=== PATIENT | female | born 1975 | race American Indian/Alaskan Native ===

== ENCOUNTER 2017-12-25 18:44 | Inpatient (IN) | payer SELFPAY ==
[2017-12-25] MEDS ORDERED: Sodium Chloride 0.9% 1,000 ML IV ONE (19:23)
--- NOTE | 2017-12-25 19:28 | C.PDOC ---
History Of Present Illness 43 year old female presents to the ER with a complaint of crampy epigastric pain radiating to the whole abdomen for the past 4 days. Patient reports she has been having lots of flatulence and had scant liquid stool today. Patient does not believe she is , she has a Hx of bilateral tubal ligation in 2010. Denies constipation. Time Seen by Provider: 12/25/17 19:18 Chief Complaint (Nursing): Abdominal Pain History Per: Patient History/Exam Limitations: no limitations Onset/Duration Of Symptoms: Days Current Symptoms Are (Timing): Still Present Location Of Pain/Discomfort: Epigastric Radiation Of Pain To:: Other (Whole abdomen) Quality Of Discomfort: Cramping Associated Symptoms: denies: Fever, Chills, Constipation Exacerbating Factors: None Alleviating Factors: None Recent travel outside of the [place]: No Abnormal Vaginal Bleeding: No Past Medical History Reviewed: Historical Data, Nursing Documentation, Vital Signs Vital Signs: Last Vital Signs Temp 98.9 F 12/25/17 22:57 Pulse 83 12/25/17 22:57 Resp 16 12/25/17 22:57 BP 127/78 12/25/17 22:57 Pulse Ox 100 12/25/17 22:57 - Medical History PMH: Anemia Family History: States: No Known Family Hx - Social History Hx Alcohol Use: No Hx Substance Use: No - Immunization History Hx Tetanus Toxoid Vaccination: No Hx Influenza Vaccination: No Hx Pneumococcal Vaccination: No Review Of Systems Constitutional: Negative for: Fever, Chills Cardiovascular: Negative for: Chest Pain, Palpitations Respiratory: Negative for: Cough, Shortness of Breath Gastrointestinal: Positive for: Abdominal Pain, Other (Scant liquid stools) Physical Exam - Physical Exam Appears: Non-toxic Skin: Normal Color, Warm, Dry Head: Atraumatic, Normacephalic Eye(s): bilateral: Normal Inspection Oral Mucosa: Moist Chest: Symmetrical, No Tenderness Cardiovascular: Rhythm Regular Respiratory: No Rales, No Rhonchi, No Wheezing Gastrointestinal/Abdominal: Soft, No Tenderness, Other (Obese, dull to percussion on right side. Negative Mcburney's/Hall's) Neurological/Psych: Oriented x3, Normal Speech ED Course And Treatment - Laboratory Results Result Diagrams: 12/25/17 19:44 12/25/17 19:44 Lab Interpretation: Abnormal (lipase 11,000 H) Urine POC: Positive (but Quant HCG only 7.6 (below qualitative threshold)) O2 Sat by Pulse Oximetry: 98 (Room air) Pulse Ox Interpretation: Normal Progress Note: Blood work, urinalysis, and obstructive series ordered. IV fluids and toradol administered. Reevaluation Time: 00:43 Reassessment Condition: Improved - Physician Consult Information Outcome Of Conversation: 0045: d/w Dr. Antunez- Hospitalist covering Self-Pay pt' s, ok to admit. Medical Decision Making Medical Decision Making: pancreatitis, lipase 11,000 and pancreatic mass (body and tail) of ? etiology no sig weight loss nor abd MARISOL adm for further eval and tx NPO Disposition Doctor Will See Patient In The: Hospital Counseled Patient/Family Regarding: Studies Performed, Diagnosis - Disposition Disposition: HOSPITALIZED Disposition Time: 00:44 Condition: GOOD Forms: [employer] (Gabonese) - Clinical Impression Clinical Impression: Cystic mass of pancreas, Pancreatitis - Scribe Statement The provider has reviewed the documentation as recorded by the Scribgarcía Rizvi All medical record entries made by the Scribe were at my direction and personally dictated by me. I have reviewed the chart and agree that the record accurately reflects my personal performance of the history, physical exam, medical decision making, and the department course for this patient. I have also personally directed, reviewed, and agree with the discharge instructions and disposition.
[2017-12-25 19:50] LABS: BASO % 0.3 % (0.0-2.0); HEMOGLOBIN 9.2 g/dL (11.0-16.0); LYMPH # 0.8 K/uL (1.0-4.3); LYMPH % 7.5 % (20.0-40.0); MEAN CELL VOLUME 65.5 fL (81.0-99.0); MEAN CORPUSCULAR HEMOGLOBIN 20.6 pg (27.0-31.0); MEAN CORPUSCULAR HGB CONC 31.5 g/dL (33.0-37.0); MEAN PLATELET VOLUME 7.5 fL (7.2-11.7); MONO # 0.6 K/uL (0.0-0.8); MONO % 5.3 % (0.0-10.0); NEUT # 9.2 K/uL (1.8-7.0); NEUT % 86.9 % (50.0-75.0); PLATELET COUNT 316 K/uL (130-400); RBC 4.44 Mil/uL (3.80-5.20); RED CELL DISTRIBUTION WIDTH 16.3 % (11.5-14.5); WHITE BLOOD COUNT 10.6 K/uL (4.8-10.8)
[2017-12-25 19:54] LABS: HCG,QUALITATIVE URINE POSITIVE (NEGATIVE)
[2017-12-25 19:58] LABS: SQUAMOUS EPITHIAL 1 /hpf (0-5); URINE BACTERIA OCC (<OCC); URINE BILIRUBIN NEGATIVE (NEGATIVE); URINE BLOOD NEGATIVE (NEGATIVE); URINE CLARITY Clear (Clear); URINE COLOR Yellow (YELLOW); URINE GLUCOSE (UA) NORMAL (Normal); URINE LEUKOCYTE ESTERASE NEG Leu/uL (Negative); URINE PROTEIN 2+ mg/dL (NEGATIVE); URINE UROBILINOGEN NORMAL mg/dL (0.2-1.0)
[2017-12-25 20:04] LABS: ALB/GLOB RATIO 1.3 (1.0-2.1); ALBUMIN 4.5 g/dL (3.5-5.0); ALT/SGPT 18 U/L (9-52); AST/SGOT 18 U/L (14-36); BLOOD UREA NITROGEN 12 mg/dL (7-17); CALCIUM 9.8 mg/dl (8.6-10.4); GFR AFRICAN-AMERICAN > 60; GFR NON-AFRICAN AMERICAN > 60
[2017-12-25 20:27] LABS: LIPASE 10947 U/L (23-300)
[2017-12-25 20:28] LABS: ANISOCYTOSIS SLIGHT; LYMPHOCYTE 9 % (20-40); MONOCYTE 4 % (0-10); NEUTROPHIL 87 % (50-75); PLATELET ESTIMATE NORMAL (NORMAL); TOTAL CELLS COUNTED 100
[2017-12-25 20:29] LABS: HYPOCHROMIC MODERATE; MICROCYTOSIS SLIGHT; POLYCHROMIC SLIGHT
[2017-12-25] MEDS ORDERED: Iodixanol 320 MG/ML 100 ML BOTTLE IV ONE (23:19)
--- NOTE | 2017-12-26 01:43 | CP.PCM.HP ---
<Susana Morales - Last Filed: 12/26/17 03:33> History of Present Illness - History of Present Illness History of Present Illness: 42 yo F w/ PMHx of iron deficiency anemia presented to the ED w/ 3 days of worsening abdominal pain. Pt states the pain is constant, located in LUQ and radiates laterally to the back on the left. Patient admits to fatigue, nausea and loose stools, now progressed to diarrhea. Pt denies chest pain, SOB, vomiting. Pt is from the [facility] here visiting and claims she has never had this pain before. Present on Admission - Present on Admission Any Indicators Present on Admission: No Review of Systems - Constitutional Constitutional: Anorexia, Chills, Fatigue - Cardiovascular Cardiovascular: absent: Chest Pain, Edema, Palpitations - Respiratory Respiratory: absent: Cough, Dyspnea - Gastrointestinal Gastrointestinal: Diarrhea, Loose Stools, Nausea. absent: Vomiting - Genitourinary Genitourinary: absent: Dysuria - Integumentary Integumentary: absent: Jaundice Past Patient History - Past Social History Smoking Status: Never Smoked - HEMATOLOGICAL/ONCOLOGICAL Hx Anemia: Yes - PSYCHIATRIC Hx Substance Use: No Meds Allergies/Adverse Reactions: Allergies Allergy/AdvReac Type Severity Reaction Status Date / Time No Known Allergies Allergy Verified 12/25/17 18:54 Physical Exam - Constitutional Appears: No Acute Distress - Head Exam Head Exam: ATRAUMATIC, NORMAL INSPECTION, NORMOCEPHALIC - Eye Exam Eye Exam: EOMI, Normal appearance. absent: Scleral icterus - ENT Exam ENT Exam: Mucous Membranes Moist, Normal Exam - Respiratory Exam Respiratory Exam: Clear to Auscultation Bilateral, NORMAL BREATHING PATTERN - Cardiovascular Exam Cardiovascular Exam: REGULAR RHYTHM, +S1, +S2 - GI/Abdominal Exam GI & Abdominal Exam: Normal Bowel Sounds, Soft - Neurological Exam Neurological exam: Alert, Oriented x3 - Psychiatric Exam Psychiatric exam: Normal Affect - Skin Skin Exam: Diaphoretic Results - Vital Signs Recent Vital Signs: Last Vital Signs Temp 98.9 F 12/25/17 22:57 Pulse 96 H 12/26/17 01:17 Resp 16 12/26/17 01:17 BP 114/72 12/26/17 01:17 Pulse Ox 99 12/26/17 01:17 - Labs Result Diagrams: 12/25/17 19:44 12/25/17 19:44 Labs: Laboratory Results - last 24 hr 12/25/17 12/25/17 12/25/17 19:41 19:44 19:44 WBC 10.6 RBC 4.44 Hgb 9.2 L Hct 29.1 L MCV 65.5 L MCH 20.6 L MCHC 31.5 L RDW 16.3 H Plt Count 316 MPV 7.5 Neut % (Auto) 86.9 H Lymph % (Auto) 7.5 L Whiteside % (Auto) 5.3 Eos % (Auto) 0.0 Baso % (Auto) 0.3 Neut # (Auto) 9.2 H Lymph # (Auto) 0.8 L Whites[place] # (Auto) 0.6 Eos # (Auto) 0.0 Baso # (Auto) 0.0 Neutrophils % (Manual) 87 H Lymphocytes % (Manual) 9 L Monocytes % (Manual) 4 Platelet Estimate Normal Polychromasia Slight Hypochromasia (manual) Moderate Anisocytosis (manual) Slight Microcytosis (manual) Slight Sodium 139 Potassium 4.1 Chloride 99 Carbon Dioxide 25 Anion Gap 18 BUN 12 Creatinine 0.6 L Est GFR ( Amer) > 60 Est GFR (Non-Af Amer) > 60 Random Glucose 136 H Calcium 9.8 Total Bilirubin 1.0 AST 18 ALT 18 Alkaline Phosphatase 84 Total Protein 8.1 Albumin 4.5 Globulin 3.6 Albumin/Globulin Ratio 1.3 Lipase 65715 H Beta HCG, Quant Urine Color Yellow Urine Clarity Clear Urine pH 5.0 Ur Specific [place] 1.025 Urine Protein 2+ H Urine Glucose (UA) Normal Urine Ketones 2+ H Urine Blood Negative Urine Nitrate Negative Urine Bilirubin Negative Urine Urobilinogen Normal Ur Leukocyte Esterase Neg Urine WBC (Auto) 2 Urine RBC (Auto) < 1 Ur Squamous Epith Cells 1 Urine Bacteria Occ H Urine HCG, Qual Positive Blood Type Antibody Screen 12/25/17 12/25/17 20:13 20:20 WBC RBC Hgb Hct MCV MCH MCHC RDW Plt Count MPV Neut % (Auto) Lymph % (Auto) Whiteside % (Auto) Eos % (Auto) Baso % (Auto) Neut # (Auto) Lymph # (Auto) Whiteside # (Auto) Eos # (Auto) Baso # (Auto) Neutrophils % (Manual) Lymphocytes % (Manual) Monocytes % (Manual) Platelet Estimate Polychromasia Hypochromasia (manual) Anisocytosis (manual) Microcytosis (manual) Sodium Potassium Chloride Carbon Dioxide Anion Gap BUN Creatinine Est GFR ( Amer) Est GFR (Non-Af Amer) Random Glucose Calcium Total Bilirubin AST ALT Alkaline Phosphatase Total Protein Albumin Globulin Albumin/Globulin Ratio Lipase Beta HCG, Quant 7.66 Urine Color Urine Clarity Urine pH Ur Specific [place] Urine Protein Urine Glucose (UA) Urine Ketones Urine Blood Urine Nitrate Urine Bilirubin Urine Urobilinogen Ur Leukocyte Esterase Urine WBC (Auto) Urine RBC (Auto) Ur Squamous Epith Cells Urine Bacteria Urine HCG, Qual Blood Type A POSITIVE Antibody Screen Negative Assessment & Plan - Assessment and Plan (Free Text) Assessment: 42 yo F w/ PMHx of iron deficiency anemia admitted w/ acute pancreatitis; pancreatic mass found on CT. 1. Acute Pancreatitis -lipase 10,947 -NS @200 -NPO -zofran 4mg q6 -morphine 1mg q4 PRN -consider GI consult 2. Pancreatic mass -HCG + -f/u CT report -f/u CEA, Ca19-9 -consider heme/onc consult 3. Iron deficiency anemia-chronic -hgb stable @ 9.2 -continue to monitor Dispo: Pt admitted inpatient at this time, reassess as pancreatitis subsides - Date & Time Date: 12/26/17 Time: 03:34 Decision To Admit - Pt Status Changed To: Hospital Disposition Of: Inpatient - Admit Certification Admit to Inpatient:: After my assessment, the patient will require hospitalization for at least two midnights. This is because of the severity of symptoms shown, intensity of services needed, and/or the medical risk in this patient being treated as an outpatient. - InPatient: Physician Admission Certification:: Pt in need of regular inpatient admission - . Bed Request Type: Regular <Davide Antunez - Last Filed: 12/26/17 06:36> Results - Vital Signs Recent Vital Signs: Last Vital Signs Temp 98.8 F 12/26/17 02:15 Pulse 75 12/26/17 02:15 Resp 20 12/26/17 02:15 BP 121/76 12/26/17 02:15 Pulse Ox 98 12/26/17 02:15 - Labs Result Diagrams: 12/25/17 19:44 12/25/17 19:44 Labs: Laboratory Results - last 24 hr 12/25/17 12/25/17 12/25/17 19:41 19:44 19:44 WBC 10.6 RBC 4.44 Hgb 9.2 L Hct 29.1 L MCV 65.5 L MCH 20.6 L MCHC 31.5 L RDW 16.3 H Plt Count 316 MPV 7.5 Neut % (Auto) 86.9 H Lymph % (Auto) 7.5 L Whiteside % (Auto) 5.3 Eos % (Auto) 0.0 Baso % (Auto) 0.3 Neut # (Auto) 9.2 H Lymph # (Auto) 0.8 L Whites[place] # (Auto) 0.6 Eos # (Auto) 0.0 Baso # (Auto) 0.0 Neutrophils % (Manual) 87 H Lymphocytes % (Manual) 9 L Monocytes % (Manual) 4 Platelet Estimate Normal Polychromasia Slight Hypochromasia (manual) Moderate Anisocytosis (manual) Slight Microcytosis (manual) Slight Sodium 139 Potassium 4.1 Chloride 99 Carbon Dioxide 25 Anion Gap 18 BUN 12 Creatinine 0.6 L Est GFR ( Amer) > 60 Est GFR (Non-Af Amer) > 60 Random Glucose 136 H Calcium 9.8 Total Bilirubin 1.0 AST 18 ALT 18 Alkaline Phosphatase 84 Total Protein 8.1 Albumin 4.5 Globulin 3.6 Albumin/Globulin Ratio 1.3 Lipase 31240 H Carcinoembryonic Ag CA 19-9 Antigen Beta HCG, Quant Urine Color Yellow Urine Clarity Clear Urine pH 5.0 Ur Specific [place] 1.025 Urine Protein 2+ H Urine Glucose (UA) Normal Urine Ketones 2+ H Urine Blood Negative Urine Nitrate Negative Urine Bilirubin Negative Urine Urobilinogen Normal Ur Leukocyte Esterase Neg Urine WBC (Auto) 2 Urine RBC (Auto) < 1 Ur Squamous Epith Cells 1 Urine Bacteria Occ H Urine HCG, Qual Positive Blood Type Antibody Screen 12/25/17 12/25/17 12/26/17 20:13 20:20 03:26 WBC RBC Hgb Hct MCV MCH MCHC RDW Plt Count MPV Neut % (Auto) Lymph % (Auto) Whiteside % (Auto) Eos % (Auto) Baso % (Auto) Neut # (Auto) Lymph # (Auto) Whiteside # (Auto) Eos # (Auto) Baso # (Auto) Neutrophils % (Manual) Lymphocytes % (Manual) Monocytes % (Manual) Platelet Estimate Polychromasia Hypochromasia (manual) Anisocytosis (manual) Microcytosis (manual) Sodium Potassium Chloride Carbon Dioxide Anion Gap BUN Creatinine Est GFR ( Amer) Est GFR (Non-Af Amer) Random Glucose Calcium Total Bilirubin AST ALT Alkaline Phosphatase Total Protein Albumin Globulin Albumin/Globulin Ratio Lipase Carcinoembryonic Ag CA 19-9 Antigen > 1000 H Beta HCG, Quant 7.66 Urine Color Urine Clarity Urine pH Ur Specific [place] Urine Protein Urine Glucose (UA) Urine Ketones Urine Blood Urine Nitrate Urine Bilirubin Urine Urobilinogen Ur Leukocyte Esterase Urine WBC (Auto) Urine RBC (Auto) Ur Squamous Epith Cells Urine Bacteria Urine HCG, Qual Blood Type A POSITIVE Antibody Screen Negative 12/26/17 03:26 WBC RBC Hgb Hct MCV MCH MCHC RDW Plt Count MPV Neut % (Auto) Lymph % (Auto) Whiteside % (Auto) Eos % (Auto) Baso % (Auto) Neut # (Auto) Lymph # (Auto) Whiteside # (Auto) Eos # (Auto) Baso # (Auto) Neutrophils % (Manual) Lymphocytes % (Manual) Monocytes % (Manual) Platelet Estimate Polychromasia Hypochromasia (manual) Anisocytosis (manual) Microcytosis (manual) Sodium Potassium Chloride Carbon Dioxide Anion Gap BUN Creatinine Est GFR ( Amer) Est GFR (Non-Af Amer) Random Glucose Calcium Total Bilirubin AST ALT Alkaline Phosphatase Total Protein Albumin Globulin Albumin/Globulin Ratio Lipase Carcinoembryonic Ag 65.6 H CA 19-9 Antigen Beta HCG, Quant Urine Color Urine Clarity Urine pH Ur Specific [place] Urine Protein Urine Glucose (UA) Urine Ketones Urine Blood Urine Nitrate Urine Bilirubin Urine Urobilinogen Ur Leukocyte Esterase Urine WBC (Auto) Urine RBC (Auto) Ur Squamous Epith Cells Urine Bacteria Urine HCG, Qual Blood Type Antibody Screen Assessment & Plan - Date & Time Date: 12/26/17 (I have seen and examined the patient. I agree with the findings and plan of care as documented by Dr. Castellon. Patient with acute pancreatitis. IVF and NPO. Symptomatic treatment. Also with pancreatic mass. Consider heme/onc consult. Monitor for acute changes.) Time: 06:35 Attending/Attestation - Attestation I have personally seen and examined this patient.: Yes I have fully participated in the care of the patient.: Yes I have reviewed all pertinent clinical information: Yes
[2017-12-26] MEDS: Sodium Chloride 0.9% 1,000 ML IV SCH ×4 (02:19→17:45)
[2017-12-26 02:34] VITALS: RESP 20; O2SAT 98
[2017-12-26 12:09] LABS: BASO % 0.2 % (0.0-2.0); EOS % 0.1 % (0.0-4.0); HEMOGLOBIN 7.8 g/dL (11.0-16.0); LYMPH # 0.8 K/uL (1.0-4.3); LYMPH % 9.2 % (20.0-40.0); MEAN CORPUSCULAR HEMOGLOBIN 21.2 pg (27.0-31.0); MEAN CORPUSCULAR HGB CONC 31.7 g/dL (33.0-37.0); MEAN PLATELET VOLUME 7.8 fL (7.2-11.7); MONO # 0.5 K/uL (0.0-0.8); MONO % 6.4 % (0.0-10.0); NEUT # 6.8 K/uL (1.8-7.0); NEUT % 84.1 % (50.0-75.0); PLATELET COUNT 271 K/uL (130-400); RED CELL DISTRIBUTION WIDTH 16.4 % (11.5-14.5); WHITE BLOOD COUNT 8.1 K/uL (4.8-10.8)
[2017-12-26 12:11] LABS: MEAN CELL VOLUME 66.8 fL (81.0-99.0)
--- NOTE | 2017-12-26 12:11 | CP.PCM.PN ---
Subjective - Date & Time of Evaluation Date of Evaluation: 12/26/17 Time of Evaluation: 08:00 - Subjective Subjective: Medicine Progress Note for Dr. Pham Patient examined at bedside. She states that her abdominal pain is improved compared to yesterday. States that her abdomen was diffusely painful on admission. However today the pain is localized to her epigastric region and right upper quadrant. Has no other complaints at this time. Denies fevers, chills, chest pain, shortness of breath, nausea, vomiting, changes in bowel movements, dysuria. Objective - Vital Signs/Intake and Output Vital Signs (last 24 hours): Temp Pulse Resp BP Pulse Ox 99.2 F 88 20 138/85 98 12/26/17 08:01 12/26/17 08:01 12/26/17 08:01 12/26/17 08:01 12/26/17 08:01 Intake and Output: 12/26/17 12/26/17 06:59 18:59 Intake Total 1999 Balance 1999 - Medications Medications: Current Medications Sodium Chloride (Sodium Chloride 0.9%) 1,000 mls @ 200 mls/hr IV .Q5H [facility] Last Admin: 12/26/17 06:23 Dose: 200 mls/hr Ondansetron HCl (Zofran Inj) 4 mg IVP Q6 [facility] Last Admin: 12/26/17 05:30 Dose: 4 mg Pantoprazole Sodium (Protonix Inj) 40 mg IVP DAILY [facility] Last Admin: 12/26/17 09:32 Dose: 40 mg - Labs Labs: 12/25/17 19:44 12/25/17 19:44 - Constitutional Appears: Non-toxic, No Acute Distress - Head Exam Head Exam: ATRAUMATIC, NORMOCEPHALIC - Eye Exam Eye Exam: EOMI, Normal appearance - ENT Exam ENT Exam: Mucous Membranes Moist, Normal Exam - Neck Exam Neck Exam: Normal Inspection - Respiratory Exam Respiratory Exam: Clear to Ausculation Bilateral, NORMAL BREATHING PATTERN - Cardiovascular Exam Cardiovascular Exam: REGULAR RHYTHM, +S1, +S2 - GI/Abdominal Exam GI & Abdominal Exam: Guarding, Soft, Tenderness (in epigastric region and right upper quadrant ), Hypoactive Bowel Sounds - Extremities Exam Extremities Exam: Full ROM, Normal Capillary Refill, Normal Inspection - Back Exam Back Exam: NORMAL INSPECTION - Neurological Exam Neurological Exam: Alert, Awake, CN II-XII Intact, Oriented x3 - Psychiatric Exam Psychiatric exam: Normal Affect, Normal Mood - Skin Skin Exam: Dry, Normal Color, Warm Assessment and Plan - Assessment and Plan (Free Text) Assessment: Patient is a 42 yo female with past medical history iron deficiency anemia admitted for acute pancreatitis. Pancreatic mass found on CT. Plan: Acute pancreatitis - CT abdomen/pelvis shows 9.3x9.3x10.3 complex cystic mass in the body and tail of the pancreas. Pancreatitis or complex cystic pancreatic tumor. 8.3x4.6x4 cm loculated fluid adjacent to the right side of the esophagus between the aorta and IVC and within the fissure for the ligamentum venosum. Could represent pseudocyst. Tiny bilateral pleural effusions. Small abdominal, pelvic and retroperitoneal fluid that measures greater than simple fluid. May be due to hemorrhage or proteinaceous debris. - Lipase 10,947 - Lipid panel unremarkable - NS @ 200 ccs/hr - NPO - Zofran 4mg q6 - Morphine 1mg q4 PRN - GI consulted. Recs appreciated. Pancreatic mass - HCG+. Transvaginal US shows enlarged heterogeneous uterus. No . - CA 19-9 >5000 - CEA 65.6 - Followup CA-125 - Consider heme/onc consult Iron deficiency anemia-chronic - Hgb 7.8 likely due to hemodilution - Continue to monitor PPX - SCDs - Protonix 40 mg IVP daily Dispo: Pending resolution of pancreatitis Teetee Shelley PGY-1
[2017-12-26 12:22] LABS: HDL CHOLESTEROL 46 mg/dL (30-70)
[2017-12-26 12:28] LABS: ALB/GLOB RATIO 1.2 (1.0-2.1); ALBUMIN 3.9 g/dL (3.5-5.0); ALT/SGPT 17 U/L (9-52); AST/SGOT 18 U/L (14-36); BLOOD UREA NITROGEN 9 mg/dL (7-17); CALCIUM 8.7 mg/dl (8.6-10.4); GFR AFRICAN-AMERICAN > 60; GFR NON-AFRICAN AMERICAN > 60
[2017-12-26 12:29] LABS: ANISOCYTOSIS SLIGHT; BANDS 2 % (0-2); LYMPHOCYTE 8 % (20-40); MONOCYTE 3 % (0-10); NEUTROPHIL 87 % (50-75); PLATELET ESTIMATE NORMAL (NORMAL); POIKILOCYTOSIS SLIGHT; TOTAL CELLS COUNTED 100
[2017-12-26 12:30] LABS: HYPOCHROMIC SLIGHT; LARGE PLATELETS PRESENT; MICROCYTOSIS SLIGHT; OVALOCYTES SLIGHT; POLYCHROMIC SLIGHT; TARGET CELLS SLIGHT
[2017-12-26 12:31] LABS: TEARDROP CELLS SLIGHT
[2017-12-26 12:33] LABS: LDL CHOLESTEROL 80 mg/dL (0-129)
--- NOTE | 2017-12-26 12:50 | CP.PCM.CON ---
History of Present Illness - History of Present Illness History of Present Illness: 42 yo female with 5 days of abdom pain- epig sharp. Got worse x2 2 days- and came to ER. Found to have elev lipase- admittted with pancreatitis.. Reports sl diarrhea. Deneis vomiting, Rb , melena, alcohol abuse. Reports elev chol few years ago- improved with meds and diet.. Denies meds, herbals, drugs, cocaine. Sister helped translate, RN present during exam. Reprots tubal ligation 2010. Normal periods- last 10 days ago. LAst intercourse 6 weeks ago. Review of Systems - Constitutional Constitutional: Anorexia. absent: Weight Gain, Weight Loss - EENT Eyes: absent: Photophobia - Cardiovascular Cardiovascular: absent: Chest Pain, Dyspnea, Palpitations, Rapid Heart Rate - Respiratory Respiratory: absent: Dyspnea, Hemoptysis, Wheezing - Gastrointestinal Gastrointestinal: Abdominal Pain, Bloating, Diarrhea. absent: Coffee Ground Emesis, Dysphagia, Hematemesis, Hematochezia, Melena, Temesmus, Vomiting - Genitourinary Genitourinary: absent: Hematuria - Menstruation Additional comments: last period 10 days - Musculoskeletal Musculoskeletal: absent: Muscle Cramps - Integumentary Integumentary: absent: Jaundice - Neurological Neurological: absent: Convulsions - Psychiatric Psychiatric: absent: Hallucinations Past Patient History - Past Social History Smoking Status: Never Smoked - HEMATOLOGICAL/ONCOLOGICAL Hx Anemia: Yes - MUSCULOSKELETAL/RHEUMATOLOGICAL Hx Falls: No - PSYCHIATRIC Hx Substance Use: No Meds Allergies/Adverse Reactions: Allergies Allergy/AdvReac Type Severity Reaction Status Date / Time No Known Allergies Allergy Verified 12/25/17 18:54 - Medications Medications: Current Medications Sodium Chloride (Sodium Chloride 0.9%) 1,000 mls @ 200 mls/hr IV .Q5H [facility] Last Admin: 12/26/17 06:23 Dose: 200 mls/hr Ondansetron HCl (Zofran Inj) 4 mg IVP Q6 [facility] Last Admin: 12/26/17 05:30 Dose: 4 mg Pantoprazole Sodium (Protonix Inj) 40 mg IVP DAILY [facility] Last Admin: 12/26/17 09:32 Dose: 40 mg Physical Exam - Constitutional Appears: Non-toxic - Respiratory Exam Respiratory Exam: Clear to Auscultation Bilateral - Cardiovascular Exam Cardiovascular Exam: RRR - GI/Abdominal Exam GI & Abdominal Exam: Normal Bowel Sounds, Soft, Tenderness. absent: Distended, Guarding, Mass, Rebound, Rigid Additional comments: mild epig tenderness - Extremities Exam Extremities exam: Negative for: calf tenderness, pedal edema - Neurological Exam Neurological exam: Alert, Oriented x3 Results - Vital Signs Recent Vital Signs: Last Vital Signs Temp 99.2 F 12/26/17 08:01 Pulse 88 12/26/17 08:01 Resp 20 12/26/17 08:01 BP 138/85 12/26/17 08:01 Pulse Ox 98 12/26/17 08:01 - Labs Result Diagrams: 12/26/17 11:56 12/26/17 11:56 Labs: Laboratory Results - last 24 hr 12/25/17 12/25/17 12/25/17 19:41 19:44 19:44 WBC 10.6 RBC 4.44 Hgb 9.2 L Hct 29.1 L MCV 65.5 L MCH 20.6 L MCHC 31.5 L RDW 16.3 H Plt Count 316 MPV 7.5 Neut % (Auto) 86.9 H Lymph % (Auto) 7.5 L [place] % (Auto) 5.3 Eos % (Auto) 0.0 Baso % (Auto) 0.3 Neut # (Auto) 9.2 H Lymph # (Auto) 0.8 L [place] # (Auto) 0.6 Eos # (Auto) 0.0 Baso # (Auto) 0.0 Neutrophils % (Manual) 87 H Band Neutrophils % Lymphocytes % (Manual) 9 L Monocytes % (Manual) 4 Platelet Estimate Normal Large Platelets Polychromasia Slight Hypochromasia (manual) Moderate Poikilocytosis (manual Anisocytosis (manual) Slight Microcytosis (manual) Slight Target Cells Tear Drop Cells Ovalocytes Sodium 139 Potassium 4.1 Chloride 99 Carbon Dioxide 25 Anion Gap 18 BUN 12 Creatinine 0.6 L Est GFR ( Amer) > 60 Est GFR (Non-Af Amer) > 60 Random Glucose 136 H Calcium 9.8 Phosphorus Magnesium Total Bilirubin 1.0 AST 18 ALT 18 Alkaline Phosphatase 84 Total Protein 8.1 Albumin 4.5 Globulin 3.6 Albumin/Globulin Ratio 1.3 Triglycerides Cholesterol LDL Cholesterol Direct HDL Cholesterol Lipase 67637 H Carcinoembryonic Ag CA 19-9 Antigen Beta HCG, Quant Urine Color Yellow Urine Clarity Clear Urine pH 5.0 Ur Specific [place] 1.025 Urine Protein 2+ H Urine Glucose (UA) Normal Urine Ketones 2+ H Urine Blood Negative Urine Nitrate Negative Urine Bilirubin Negative Urine Urobilinogen Normal Ur Leukocyte Esterase Neg Urine WBC (Auto) 2 Urine RBC (Auto) < 1 Ur Squamous Epith Cells 1 Urine Bacteria Occ H Urine HCG, Qual Positive Blood Type Antibody Screen 12/25/17 12/25/17 12/26/17 20:13 20:20 03:26 WBC RBC Hgb Hct MCV MCH MCHC RDW Plt Count MPV Neut % (Auto) Lymph % (Auto) [place] % (Auto) Eos % (Auto) Baso % (Auto) Neut # (Auto) Lymph # (Auto) [place] # (Auto) Eos # (Auto) Baso # (Auto) Neutrophils % (Manual) Band Neutrophils % Lymphocytes % (Manual) Monocytes % (Manual) Platelet Estimate Large Platelets Polychromasia Hypochromasia (manual) Poikilocytosis (manual Anisocytosis (manual) Microcytosis (manual) Target Cells Tear Drop Cells Ovalocytes Sodium Potassium Chloride Carbon Dioxide Anion Gap BUN Creatinine Est GFR ( Amer) Est GFR (Non-Af Amer) Random Glucose Calcium Phosphorus Magnesium Total Bilirubin AST ALT Alkaline Phosphatase Total Protein Albumin Globulin Albumin/Globulin Ratio Triglycerides Cholesterol LDL Cholesterol Direct HDL Cholesterol Lipase Carcinoembryonic Ag CA 19-9 Antigen > 5000 H Beta HCG, Quant 7.66 Urine Color Urine Clarity Urine pH Ur Specific [place] Urine Protein Urine Glucose (UA) Urine Ketones Urine Blood Urine Nitrate Urine Bilirubin Urine Urobilinogen Ur Leukocyte Esterase Urine WBC (Auto) Urine RBC (Auto) Ur Squamous Epith Cells Urine Bacteria Urine HCG, Qual Blood Type A POSITIVE Antibody Screen Negative 12/26/17 12/26/17 12/26/17 03:26 11:56 11:56 WBC 8.1 RBC 3.70 L Hgb 7.8 L Hct 24.7 L MCV 66.8 L MCH 21.2 L MCHC 31.7 L RDW 16.4 H Plt Count 271 MPV 7.8 Neut % (Auto) 84.1 H Lymph % (Auto) 9.2 L [place] % (Auto) 6.4 Eos % (Auto) 0.1 Baso % (Auto) 0.2 Neut # (Auto) 6.8 Lymph # (Auto) 0.8 L [place] # (Auto) 0.5 Eos # (Auto) 0.0 Baso # (Auto) 0.0 Neutrophils % (Manual) 87 H Band Neutrophils % 2 Lymphocytes % (Manual) 8 L Monocytes % (Manual) 3 Platelet Estimate Normal Large Platelets Present Polychromasia Slight Hypochromasia (manual) Slight Poikilocytosis (manual Slight Anisocytosis (manual) Slight Microcytosis (manual) Slight Target Cells Slight Tear Drop Cells Slight Ovalocytes Slight Sodium 141 Potassium 3.9 Chloride 106 Carbon Dioxide 21 L Anion Gap 18 BUN 9 Creatinine 0.6 L Est GFR ( Amer) > 60 Est GFR (Non-Af Amer) > 60 Random Glucose 93 Calcium 8.7 Phosphorus 2.6 Magnesium 2.0 Total Bilirubin 0.8 AST 18 ALT 17 Alkaline Phosphatase 72 Total Protein 7.0 Albumin 3.9 Globulin 3.2 Albumin/Globulin Ratio 1.2 Triglycerides Cholesterol LDL Cholesterol Direct HDL Cholesterol Lipase Carcinoembryonic Ag 65.6 H CA 19-9 Antigen Beta HCG, Quant Urine Color Urine Clarity Urine pH Ur Specific [place] Urine Protein Urine Glucose (UA) Urine Ketones Urine Blood Urine Nitrate Urine Bilirubin Urine Urobilinogen Ur Leukocyte Esterase Urine WBC (Auto) Urine RBC (Auto) Ur Squamous Epith Cells Urine Bacteria Urine HCG, Qual Blood Type Antibody Screen 12/26/17 11:56 WBC RBC Hgb Hct MCV MCH MCHC RDW Plt Count MPV Neut % (Auto) Lymph % (Auto) [place] % (Auto) Eos % (Auto) Baso % (Auto) Neut # (Auto) Lymph # (Auto) [place] # (Auto) Eos # (Auto) Baso # (Auto) Neutrophils % (Manual) Band Neutrophils % Lymphocytes % (Manual) Monocytes % (Manual) Platelet Estimate Large Platelets Polychromasia Hypochromasia (manual) Poikilocytosis (manual Anisocytosis (manual) Microcytosis (manual) Target Cells Tear Drop Cells Ovalocytes Sodium Potassium Chloride Carbon Dioxide Anion Gap BUN Creatinine Est GFR ( Amer) Est GFR (Non-Af Amer) Random Glucose Calcium Phosphorus Magnesium Total Bilirubin AST ALT Alkaline Phosphatase Total Protein Albumin Globulin Albumin/Globulin Ratio Triglycerides 49 Cholesterol 181 LDL Cholesterol Direct 80 HDL Cholesterol 46 Lipase Carcinoembryonic Ag CA 19-9 Antigen Beta HCG, Quant Urine Color Urine Clarity Urine pH Ur Specific [place] Urine Protein Urine Glucose (UA) Urine Ketones Urine Blood Urine Nitrate Urine Bilirubin Urine Urobilinogen Ur Leukocyte Esterase Urine WBC (Auto) Urine RBC (Auto) Ur Squamous Epith Cells Urine Bacteria Urine HCG, Qual Blood Type Antibody Screen Assessment & Plan - Assessment and Plan (Free Text) Assessment: 1) epig pain: PANCREATITIS AND PANC MASS 2) PANCREATITIS- LIKELY RELATED TO PANC MASS. nO ETOH. DOUBT LIPIDS OR AI. REc IV fluids 250 cc/hr. Work up mass/ 3) PANCREAS MASS- complex- reviewed with radiologist Dr Roth- he feels is more mass and not pseudocyst. Consider malignannt, mucinous lesion, neuroendocrine. Will eventually need endo sono and FNA vs surgery. 4) COLLECTION NEAR ESOPHAGUS- likely fluid related to pancreatitis or mass. Consdier drainage. WBC is ok. 5) + hcg- doubt . NEED OBGYN opinion. Pancreatic tumors can yield pos preg/HCG results. 6)POS CEA, CA19- consider pancreatitis, malignancy/. REC: NPO. IV fluids 250 cc/hr f/u labs, CBC, CMP, ;lipase, lipids OBGYN consult Surgery consult CAse discussed with certified ophthalmic medical technician and DR Pham at length. CAse discussed with Radiologist. I called and discussed case with pancreas expert DR Parham at [facility]. He would accept patient as transfer. He agrees with present management and impression. This was discussed with pt and recommended to patient- she declines transfer. She wants to get pancreatitis better- she says pain is improving, and then go back home for further work up and treatment. I discussed risks of cancer, pancreeatitis, infection, . SHe also declines blood transfusions- she is Jehov Witness.
--- NOTE | 2017-12-26 14:18 | CT ---
Date of service: 12/25/2017 PROCEDURE: CT Abdomen and Pelvis with contrast HISTORY: abdominal pain, lipase 11,000 COMPARISON: Transvaginal pelvis ultrasound 12/25/2017. TECHNIQUE: Following the intravenous administration of iodinated contrast material, a CT examination of the abdomen and pelvis performed from the domes of the diaphragms to the symphysis pubis with reformatted datasets provided in axial, sagittal and coronal planes. Oral contrast was not administered as per referring physician request. Contrast dose: Omnipaque 320, 100 cc Radiation dose: Total exam DLP = 950.52 mGy-cm. This CT exam was performed using one or more of the following dose reduction techniques: Automated exposure control, adjustment of the mA and/or kV according to patient size, and/or use of iterative reconstruction technique. FINDINGS: LOWER THORAX: Prominent cardiac size appreciated. Trace bilateral pleural effusions noted. No pericardial effusion. Small hiatal hernia encountered. LIVER: There is reversed C-shaped fluid collection measuring 5.8 x 4.1 cm identified possibly within the caudate head of the of the liver and left lobe compressing the liver in a reverse C-shaped lesion at the upper aortocaval space of uncertain origin. GALLBLADDER AND BILE DUCTS: Unremarkable. PANCREAS: There is a large mass related to the distal body and tail of the pancreas measuring 11.9 x 8.4 cm predominantly lucent in density though with soft tissue components internally suggestive of a complex cystic and solid mass and therefore pancreatic neoplasm is suspected. This does not appear to be the typical pseudocyst though this is the differential diagnosis. No emphysematous changes are related to suggest infection internally. The lesion impresses the upper pole left kidney somewhat. SPLEEN: Unremarkable. ADRENALS: Unremarkable. No mass. KIDNEYS AND URETERS: Limited impression of upper pole left kidney by pancreatic body/ tail mass as discussed in pancreas section above. No hydronephrosis. No solid mass. VASCULATURE: Unremarkable. No aortic aneurysm. BOWEL: Unremarkable. No obstruction. No gross mural thickening. APPENDIX: Normal appendix. PERITONEUM: Trace fluid is seen in the right and left pericolic gutters extending into the pelvis with minimal pelvic ascites present. LYMPH NODES: Unremarkable. No enlarged lymph nodes. BLADDER: Unremarkable. REPRODUCTIVE: Mild uterine enlargement is appreciated with a right mural fundal calcifications suggestive of fibroid. Limited right adnexal cystic change are appreciate up to 2.0 cm greatest dimension. BONES: No acute fracture. OTHER FINDINGS: None. IMPRESSION: 1. 11.9 x 8.4 cm pancreas body and tail heterogeneous complex cystic and solid mass is appreciated suspicious for potential benign or malignant pancreatic neoplasm. 2. A 5.8 cystic lesion at the upper aortocaval distribution or within the caudate head of the liver is appreciated of uncertain origin. This may represent a pancreatic lesions well, possible pseudocyst. 3. Limited inferior pelvic ascites. 4. Trace bilateral pleural effusions noted. Concordant preliminary report from [facility], 12/26/2017.
--- NOTE | 2017-12-26 15:11 | CP.PCM.PN ---
Subjective - Date & Time of Evaluation Date of Evaluation: 12/26/17 Time of Evaluation: 11:20 - Subjective Subjective: Medical Attending Note: Patient seen and examined with GI. Patient seen this morning with her twin-sister at bedside. Twin Sister is assisting in translation since patient is primarily Ukrainian speaking. Patient reports she is visiting from the [facility] [place]. She reports last week she had mild abdominal pain but attempted Pepcid and reportsit calmed her belly. Then she reports this past Thursday it got worse which prompted her to come to the hospital. Prior to last week, no complaints of abdominal pain, nor nausea, nor vomitting. Patient reports a prior history of cholestrol but reports she was taken off her medication by her doctor since her levels were better. Patient reports a prior history of tubal ligation in 2010. She reports at that point she had 3 pregnancies and did not want any more children. Patient reports she is regular on her menstruation. She does not use any OCPs/nor IUDs. She reports she has last had sexual intercourse with her on October 28. She reports she last her menstruation about last last Thursday. Her has already flown back to [facility] few weeks ago. She is , employer relations representative. She denies any family hx of cancer, nor cervical, endometrial, colon cancer. She has not had a history of irregular menstruations. She reports she has had a pap about 3 months ago and was told she was normal. She reports she has a history of anemia, and takes PO iron. She reports she is a Jevoah's witness and concerned about if she needed any blood products. We (GI and I) explained to her she does have pancreatitis and a pancreatic mass that is concerning. Patient has had many conversation with her since our intiial conversation. Her is a computer customer support specialist in [facility] as well. She has ultimately decided she would like to stay to get treated and is amenable to to the transfer to [facility] for further evaluation in regards to her pancreatic mass which GI has spoken with the patient and is willing to setup. I have informed Dr. Hunt of the latest update since his note; in the mean time, we will consult general surgery to evaluate given pancreatic mass vs pseudocyst and we will consult ob-cheese maker to rule out . Objective - Vital Signs/Intake and Output Vital Signs (last 24 hours): Temp Pulse Resp BP Pulse Ox 99.2 F 88 20 138/85 98 12/26/17 08:01 12/26/17 08:01 12/26/17 08:01 12/26/17 08:01 12/26/17 08:01 Intake and Output: 12/26/17 12/26/17 06:59 18:59 Intake Total 3600 Balance 3600 - Medications Medications: Current Medications Sodium Chloride (Sodium Chloride 0.9%) 1,000 mls @ 200 mls/hr IV .Q5H [facility] Last Admin: 12/26/17 12:30 Dose: 200 mls/hr Ondansetron HCl (Zofran Inj) 4 mg IVP Q6 [facility] Last Admin: 12/26/17 12:50 Dose: 4 mg Pantoprazole Sodium (Protonix Inj) 40 mg IVP DAILY [facility] Last Admin: 12/26/17 09:32 Dose: 40 mg - Labs Labs: 12/26/17 11:56 12/26/17 11:56 - Constitutional Appears: Non-toxic, In Acute Distress, Other (tired, fatigued) - Head Exam Head Exam: NORMAL INSPECTION - Eye Exam Eye Exam: EOMI - ENT Exam ENT Exam: Mucous Membranes Moist - Respiratory Exam Respiratory Exam: Clear to Ausculation Bilateral, NORMAL BREATHING PATTERN. absent: Rales, Rhonchi, Wheezes - Cardiovascular Exam Cardiovascular Exam: REGULAR RHYTHM, +S1, +S2 - GI/Abdominal Exam GI & Abdominal Exam: Distended, Soft, Tenderness (mild tenderness to palpation; 4/10), Normal Bowel Sounds, Rebound. absent: Rigid, Diminished Bowel Sounds - Extremities Exam Extremities Exam: absent: Pedal Edema, Tenderness - Neurological Exam Neurological Exam: Alert, Awake, Oriented x3 - Psychiatric Exam Psychiatric exam: Normal Mood - Skin Skin Exam: Dry, Normal Color, Warm Assessment and Plan (1) Cystic mass of pancreas Status: Acute (2) Elevated serum hCG Status: Acute (3) Lipid disorder Status: Acute (4) Anemia Status: Acute (5) Pancreatitis Status: Acute (6) Prophylactic measure Status: Acute Attending/Attestation - Attestation I have personally seen and examined this patient.: Yes I have fully participated in the care of the patient.: Yes I have reviewed all pertinent clinical information, including history, physical exam and plan: Yes Notes (Text): 1) Cystic Mass of Pancreas Pancreatitis Assessment/Plan * GI (Dr. Hunt) help appreciated * Official read (Ct abdomen/pelvis): 11.9 X 8.4cm pancreas body and tail heterogenous complex cystic and solida mass is appreciated suspicious for potential benign or malignant pancreatic neoplasm. A 5.8 cystic cystic lesion at the upper aortocaval distribution or within the caudate head of the liver is appreciated of uncertain origin. may represent a pancreatic lesio well. pseudocyst. Limited inferior pelvic asictes. trace bilateral pleural effusions * Will arrange for transfer to [facility] since patient has spoken with her and agrees for further evaluation * He has called and discussed case with pancreas expert DR Parham at [facility]. He would accept patient as transfer. He agrees with present management and impression. This was discussed with pt and recommended to patient * NPO * IV fluids * Elevated Lipase * Elevated CEA, CA 19-9, and CA 125-5 * Check lipid panel * Check hgba1c 2) Elevated beta-hcg Assessment/Plan * OB Hospitalist (Dr. 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 * pending official reports of ultrasounds * is bhcg related to mass; but will need to exclude * Note: patient was informed about her bhcg and urine and does not believe she can with and she has had three children in prior 3) History of elevated cholestrol Assessment/Plan * Check lipid panel r/o hypertriglyceridemia 4) History of anemia Assessment/plan * has prior history of anemia * suspect latest H/H is dilutional given she is on IV fluids * will check reticulocyte count, ferritin, TIBC, iron, iron saturation, B12, folate * Patient is a observant Jevoah's witness and does not want any blood transfusion 5) Prophylactic Measure Assessment/plan * Patient is ambulatory * SCDS while in bed * Protonix 40mg IV 1 daily
[2017-12-26 17:02] VITALS: BP 124/76; PULSE 99; TEMP 97.7
--- NOTE | 2017-12-26 17:27 | US ---
Date of service: 12/25/2017 PROCEDURE: TRANSABDOMINAL TRANSVAGINAL PELVIC ULTRASOUND HISTORY: gen belly pain, ? weeks preg COMPARISON: None available. TECHNIQUE: Ultrasound of the pelvic contents was performed using transabdominal and transvaginal technique in longitudinal and transverse projections. FINDINGS: The uterus is slightly retroverted and mildly retroflexed without definite myometrial mass appreciable. Trace complex fluid is seen in the cul-de-sac of uncertain origin. Node suspicious cervical or endometrial mass. The endometrium measures 14.0 mm without focal mass or fluid collection related. Cervical length measures 4.4 cm with closed internal os. The right ovary measures 3.8 x 2.2 x 3.4 cm with 2 simple cysts identified internally. The more superolateral of the 2 cysts measures 1.5x 1.5 x 2.0 cm with the adjacent cyst seen medially measuring 1.8 x 1.4 x 1.8 cm. Intra-ovarian arterial blood flow is identified with no evidence to suggest right ovarian torsion. The left ovary measures 3.21.9 x 3.3 cm and is unremarkable including color Doppler blood flow interrogation. IMPRESSION: No evidence of ovarian torsion bilaterally. Two simple cysts are identified in the right ovary as discussed above. Unremarkable left ovary uterus and cervix.
[2017-12-26 17:37] LABS: IRON 13 ug/dL (37-170)
[2017-12-26 17:47] LABS: % IRON SATURATION 4 (20-55); TOTAL IRON BINDING CAPACITY 288 ug/dL (250-450)
--- NOTE | 2017-12-26 18:36 | CP.PCM.DIS ---
Provider - Provider Date of Admission: 12/26/17 00:45 Attending physician: Davide Antunez MD Consults: Dr. Marilee Sheth Time Spent in preparation of Discharge (in minutes): 45 Diagnosis - Discharge Diagnosis (1) Cystic mass of pancreas Status: Acute (2) Pancreatitis Status: Acute (3) Anemia Status: Chronic Hospital Course - Lab Results Lab Results: Most Recent Lab Values WBC 8.1 K/uL (4.8-10.8) 12/26/17 11:56 RBC 3.70 Mil/uL (3.80-5.20) L 12/26/17 11:56 Hgb 7.8 g/dL (11.0-16.0) L 12/26/17 11:56 Hct 24.7 % (34.0-47.0) L 12/26/17 11:56 MCV 66.8 fL (81.0-99.0) L 12/26/17 11:56 MCH 21.2 pg (27.0-31.0) L 12/26/17 11:56 MCHC 31.7 g/dL (33.0-37.0) L 12/26/17 11:56 RDW 16.4 % (11.5-14.5) H 12/26/17 11:56 Plt Count 271 K/uL (130-400) 12/26/17 11:56 MPV 7.8 fL (7.2-11.7) 12/26/17 11:56 Neut % (Auto) 84.1 % (50.0-75.0) H 12/26/17 11:56 Lymph % (Auto) 9.2 % (20.0-40.0) L 12/26/17 11:56 [place] % (Auto) 6.4 % (0.0-10.0) 12/26/17 11:56 Eos % (Auto) 0.1 % (0.0-4.0) 12/26/17 11:56 Baso % (Auto) 0.2 % (0.0-2.0) 12/26/17 11:56 Neut # (Auto) 6.8 K/uL (1.8-7.0) 12/26/17 11:56 Lymph # (Auto) 0.8 K/uL (1.0-4.3) L 12/26/17 11:56 [place] # (Auto) 0.5 K/uL (0.0-0.8) 12/26/17 11:56 Eos # (Auto) 0.0 K/uL (0.0-0.7) 12/26/17 11:56 Baso # (Auto) 0.0 K/uL (0.0-0.2) 12/26/17 11:56 Neutrophils % (Manual) 87 % (50-75) H 12/26/17 11:56 Band Neutrophils % 2 % (0-2) 12/26/17 11:56 Lymphocytes % (Manual) 8 % (20-40) L 12/26/17 11:56 Monocytes % (Manual) 3 % (0-10) 12/26/17 11:56 Platelet Estimate Normal (NORMAL) 12/26/17 11:56 Large Platelets Present 12/26/17 11:56 Polychromasia Slight 12/26/17 11:56 Hypochromasia (manual) Slight 12/26/17 11:56 Poikilocytosis (manual Slight 12/26/17 11:56 Anisocytosis (manual) Slight 12/26/17 11:56 Microcytosis (manual) Slight 12/26/17 11:56 Target Cells Slight 12/26/17 11:56 Tear Drop Cells Slight 12/26/17 11:56 Ovalocytes Slight 12/26/17 11:56 Sodium 141 mmol/L (132-148) 12/26/17 11:56 Potassium 3.9 mmol/L (3.6-5.2) 12/26/17 11:56 Chloride 106 mmol/L (98-107) 12/26/17 11:56 Carbon Dioxide 21 mmol/L (22-30) L 12/26/17 11:56 Anion Gap 18 (10-20) 12/26/17 11:56 BUN 9 mg/dL (7-17) 12/26/17 11:56 Creatinine 0.6 mg/dL (0.7-1.2) L 12/26/17 11:56 Est GFR ( Amer) > 60 12/26/17 11:56 Est GFR (Non-Af Amer) > 60 12/26/17 11:56 Random Glucose 93 mg/dL (65-105) 12/26/17 11:56 Calcium 8.7 mg/dl (8.6-10.4) 12/26/17 11:56 Phosphorus 2.6 mg/dL (2.5-4.5) 12/26/17 11:56 Magnesium 2.0 mg/dL (1.6-2.3) 12/26/17 11:56 Iron 13 ug/dL (37-170) L 12/26/17 17:16 TIBC 288 ug/dL (250-450) 12/26/17 17:16 % Saturation 4 (20-55) L 12/26/17 17:16 Total Bilirubin 0.8 mg/dL (0.2-1.3) 12/26/17 11:56 AST 18 U/L (14-36) 12/26/17 11:56 ALT 17 U/L (9-52) 12/26/17 11:56 Alkaline Phosphatase 72 U/L (38-126) 12/26/17 11:56 Total Protein 7.0 g/dL (6.3-8.3) 12/26/17 11:56 Albumin 3.9 g/dL (3.5-5.0) 12/26/17 11:56 Globulin 3.2 gm/dL (2.2-3.9) 12/26/17 11:56 Albumin/Globulin Ratio 1.2 (1.0-2.1) 12/26/17 11:56 Triglycerides 49 mg/dL (0-149) 12/26/17 11:56 Cholesterol 181 mg/dL (0-199) 12/26/17 11:56 LDL Cholesterol Direct 80 mg/dL (0-129) 12/26/17 11:56 HDL Cholesterol 46 mg/dL (30-70) 12/26/17 11:56 Lipase 33920 U/L (23-300) H 12/25/17 19:44 Carcinoembryonic Ag 65.6 ng/mL (0-3.0) H 12/26/17 03:26 CA 19-9 Antigen > 5000 U/mL (0-37) H 12/26/17 03:26 CA 125 Antigen 243 U/mL (0-35) H 12/26/17 11:56 Beta HCG, Quant 7.66 mIU/ML 12/25/17 20:13 Urine Color Yellow (YELLOW) 12/25/17 19:41 Urine Clarity Clear (Clear) 12/25/17 19:41 Urine pH 5.0 (5.0-8.0) 12/25/17 19:41 Ur Specific Elfrida 1.025 (1.003-1.030) 12/25/17 19:41 Urine Protein 2+ mg/dL (NEGATIVE) H 12/25/17 19:41 Urine Glucose (UA) Normal mg/dL (Normal) 12/25/17 19:41 Urine Ketones 2+ mg/dL (NEGATIVE) H 12/25/17 19:41 Urine Blood Negative (NEGATIVE) 12/25/17 19:41 Urine Nitrate Negative (NEGATIVE) 12/25/17 19:41 Urine Bilirubin Negative (NEGATIVE) 12/25/17 19:41 Urine Urobilinogen Normal mg/dL (0.2-1.0) 12/25/17 19:41 Ur Leukocyte Esterase Neg Richar/uL (Negative) 12/25/17 19:41 Urine WBC (Auto) 2 /hpf (0-5) 12/25/17 19:41 Urine RBC (Auto) < 1 /hpf (0-3) 12/25/17 19:41 Ur Squamous Epith Cells 1 /hpf (0-5) 12/25/17 19:41 Urine Bacteria Occ (<OCC) H 12/25/17 19:41 Urine HCG, Qual Positive (NEGATIVE) 12/25/17 19:41 Blood Type A POSITIVE 12/25/17 20:20 Antibody Screen Negative 12/25/17 20:20 - Hospital Course Hospital Course: On admission: 42 yo F w/ PMHx of iron deficiency anemia presented to the ED w/ 3 days of worsening abdominal pain. Pt states the pain is constant, located in LUQ and radiates laterally to the back on the left. Patient admits to fatigue, nausea and loose stools, now progressed to diarrhea. Pt denies chest pain, SOB , vomiting. Patient is from the [facility] here visiting and claims she has never had this pain before. During hospital stay: CT abdomen and pelvis was done which showed 11.9 X 8.4cm pancreas body and tail heterogenous complex cystic and solida mass is appreciated suspicious for potential benign or malignant pancreatic neoplasm. A 5.8 cystic cystic lesion at the upper aortocaval distribution or within the caudate head of the liver is appreciated of uncertain origin. may represent a pancreatic lesio well. pseudocyst. Limited inferior pelvic asictes. trace bilateral pleural effusions. Labs showed elevated CEA, CA 19-9, CA 125-5. GI was consulted. Transfer was arranged to [facility] since patient has spoken with her and agrees for further evaluation. Dr. Hunt called and discussed case with pancreas expert Dr. Ballard at [facility]. He would accept patient as transfer. He agrees with present management and impression. This was discussed with pt and recommended to patient. On labs patient also had elevated beta-hcg. Dr. Sheth OB hospitalist was consulted. Patient had bilateral tubal ligation in 2010; reports last sexual activity was October 28 with , and is currently having her periods. Patient was informed about her bhcg and urine and does not believe she can with and she has had three children in prior. Patient is a observant [employer] and does not want any blood transfusion. Anemia was continuously monitored. Patient is to have b-hcg checked every 2 days to monitor to monitor for possibility of . Patient is to be transferred to care under pancreas expert Dr. Ballard at [facility]. Please return to ED if symptoms worsen. - Date & Time of H&P Date of H&P: 12/26/17 Time of H&P: 01:42 Discharge Exam - Head Exam Head Exam: ATRAUMATIC, NORMAL INSPECTION, NORMOCEPHALIC - Eye Exam Eye Exam: EOMI, Normal appearance - ENT Exam ENT Exam: Mucous Membranes Moist, Normal Exam - Respiratory Exam Respiratory Exam: NORMAL BREATHING PATTERN, UNREMARKABLE - Cardiovascular Exam Cardiovascular Exam: REGULAR RHYTHM, +S1, +S2 - GI/Abdominal Exam GI & Abdominal Exam: Tenderness. absent: Distended, Firm, Rebound, Rigid Additional comments: in epigastric region and right upper quadrant - Extremities Exam Extremities exam: normal capillary refill, normal inspection - Back Exam Back exam: NORMAL INSPECTION - Neurological Exam Neurological exam: Alert, CN II-XII Intact, Oriented x3 - Psychiatric Exam Psychiatric exam: Normal Affect, Normal Mood - Skin Skin Exam: Dry, Intact, Normal Color Discharge Plan - Follow Up Plan Condition: GOOD Disposition: Trans to Other Acute Care Hosp Additional Instructions: Patient is to have b-hcg checked every 2 days to monitor to monitor for possibility of . Patient is to be transferred to care under pancreas expert Dr. Ballard at [facility]. Please return to ED if symptoms worsen.
== END 2017-12-26 21:50 | disposition short-term general hospital (02) | DRG 438 ==
LOC: C.ER 18:44 → C.3T 12-26 00:45 → C.9E 12-26 00:45
PROVIDERS: ADMIT Hospitalist; ATTEND Hospitalist
DX: K86.2 Cyst of pancreas (principal); K85.90 Acute pancreatitis without necrosis or infection, unspecified; D50.9 Iron deficiency anemia, unspecified; Z98.51 Tubal ligation status